=== PATIENT | female | born 1985 | race Caucasian/White ===

== ENCOUNTER 2017-06-07 00:41 | Emergency (ER) | payer MEDICAID ==
[2017-06-07] MEDS ORDERED: ONDANSETRON 4 MG/2 ML VIAL IVP ONE (01:34)
--- NOTE | 2017-06-07 01:45 | EDPHY ---
H & P Smoking Status: Never smoked Time Seen by Provider: 06/07/17 01:28 HPI/ROS: CHIEF COMPLAINT: Pleuritic chest pain HISTORY OF PRESENT ILLNESS: 32-year-old female presents to the emergency department by private vehicle complaining of right-sided chest and upper arm pain. The patient has a history of previous TIAs versus possible CVAs. She has antiphospholipid antibody syndrome. She was on Lovenox for nearly 1 year after she had her son and then stop this medication about 1 year ago. Tonight she developed abrupt onset of pain in her right upper chest and right anterior shoulder. She thinks it feels swollen. She is having pain with taking a big deep breath in feels mildly short of breath. No fevers or chills. No trauma. No abdominal pain or vomiting. REVIEW OF SYSTEMS: Constitutional: No fever, no chills. Eyes: No double or blurry vision. ENT: No sore throat. Respiratory: As above. No cough. Cardiac: Right anterior chest pain as above. Gastrointestinal: No abdominal pain, vomiting or diarrhea. Genitourinary: No dysuria. Musculoskeletal: No neck or back pain. Skin: No rashes. Neurological: No headache. (AreliCaroline philippe) Past Medical/Surgical History: TIA, CVA, antiphospholipid antibody, DVT groin requiring filter. (AreliCaroline philippe) Social History: Single (Dori Mcmahonartie Macias) Physical Exam: General Appearance: Alert, no distress. 97% on room air, heart rate 68, 131/66 Eyes: Pupils equal and round. Extraocular motions are all intact. ENT: Mouth: Mucous membranes moist. Respiratory: No wheezing, rhonchi, or rales, lungs are clear to auscultation. Pain with palpation to the right anterior superior aspect of her chest into her right anterior shoulder. Cardiovascular: Regular rate and rhythm. Gastrointestinal: Abdomen is soft and nontender, no masses, no rebound or guarding, bowel sounds normal. Neurological: Alert and oriented x 3, cranial nerves II through XII grossly intact Skin: Warm and dry, no rashes. Musculoskeletal: Nontender to palpate along the cervical, thoracic or lumbar spine. Neck is supple. Extremities: Full range of motion and no peripheral edema. Psychiatric: Patient is oriented X 3, there is no agitation. (Caroline Mcmahon) Constitutional: Initial Vital Signs Temperature (C) 36.8 C 06/07/17 00:45 Heart Rate 68 06/07/17 00:45 Respiratory Rate 18 06/07/17 00:45 Blood Pressure 131/66 H 06/07/17 00:45 O2 Sat (%) 97 06/07/17 00:45 O2 Delivery Mode Room Air Allergies/Adverse Reactions: Penicillins Allergy (Verified 06/07/17 00:44) peanuts Allergy (Uncoded 06/07/17 00:44) Home Medications: Medication Instructions Recorded Herbals/Supplements -Info Only 1 ea PO DAILY 02/19/14 Aspirin EC [Aspirin EC 81 mg (*)] 81 mg PO DAILY #30 tab 08/06/14 Enoxaparin [Lovenox 100 MG (*)] 100 mg SC DAILY #30 syr 08/06/14 Medical Decision Making ED Course/Re-evaluation: 32-year-old female with a history of DVT, TIA and CVA presents with pleuritic right upper chest pain and right anterior neck and shoulder pain. I explained to the patient that I was concerned about possible pulmonary embolism. An IV will be established and the patient will have CT pulmonary angiogram. Her mother gave her a baby aspirin prior to arrival. (Caroline Mcmahon) [id number]: CT angiogram of the chest shows no evidence of pulmonary embolism. I did go and see and evaluate the patient she is right comfortably at this time she has no arm pain neck pain or chest pain or shortness of breath she is feeling comfortable. Agreeable discharge. She does understand return immediately murmur she develops worsening pain questions or concerns. No evidence of PE on CT angiogram today. (Dick Ricardo) Differential Diagnosis: Shortness of breath including but not limited to pulmonary infectious process, COPD, asthma, pulmonary embolus and congestive heart failure. (Caroline Mcmahon) Care Turn Over: Care will be turned over to Dr. Ricardo for disposition and plan. (Caroline Mcmahon) - Data Points Laboratory Results: Laboratory Results 06/07/17 01:50 06/07/17 01:50 06/07/17 06/07/17 06/07/17 01:50 01:50 01:50 WBC 7.33 10^3/uL 10^3/uL (3.80-9.50) RBC 3.95 10^6/uL L 10^6/uL (4.18-5.33) Hgb 13.2 g/dL g/dL (12.6-16.3) Hct 39.0 % % (38.0-47.0) MCV 98.7 fL fL (81.5-99.8) MCH 33.4 pg pg (27.9-34.1) MCHC 33.8 g/dL g/dL (32.4-36.7) RDW 11.9 % % (11.5-15.2) Plt Count 150 10^3/uL 10^3/uL (150-400) MPV 9.1 fL fL (8.7-11.7) Neut % (Auto) 64.0 % % (39.3-74.2) Lymph % (Auto) 26.3 % % (15.0-45.0) [place] % (Auto) 8.5 % % (4.5-13.0) Eos % (Auto) 0.7 % % (0.6-7.6) Baso % (Auto) 0.4 % % (0.3-1.7) Nucleat RBC Rel Count 0.0 % % (0.0-0.2) Absolute Neuts (auto) 4.69 10^3/uL 10^3/uL (1.70-6.50) Absolute Lymphs (auto) 1.93 10^3/uL 10^3/uL (1.00-3.00) Absolute Monos (auto) 0.62 10^3/uL 10^3/uL (0.30-0.80) Absolute Eos (auto) 0.05 10^3/uL 10^3/uL (0.03-0.40) Absolute Basos (auto) 0.03 10^3/uL 10^3/uL (0.02-0.10) Absolute Nucleated RBC 0.00 10^3/uL 10^3/uL (0-0.01) Immature Gran % 0.1 % % (0.0-1.1) Immature Gran # 0.01 10^3/uL 10^3/uL (0.00-0.10) Sodium 139 mEq/L mEq/L (134-144) Potassium 3.7 mEq/L mEq/L (3.5-5.2) Chloride 103 mEq/L mEq/L (97-110) Carbon Dioxide 22 mEq/l mEq/l (22-31) Anion Gap 14 mEq/L mEq/L (8-16) BUN 18 mg/dL mg/dL (7-23) Creatinine 0.8 mg/dL mg/dL (0.6-1.0) Estimated GFR > 60 Glucose 100 mg/dL mg/dL (70-100) Calcium 9.0 mg/dL mg/dL (8.5-10.4) Beta HCG, Qual NEGATIVE Medications Given: Discontinued Medications Sodium Chloride (Ns) 1,000 mls @ 0 mls/hr IV ONCE ONE PRN Reason: Wide Open Stop: 06/07/17 02:08 Last Admin: 06/07/17 02:07 Dose: 1,000 mls Departure - Departure Disposition: Home, Routine, Self-Care Clinical Impression: Arm pain Qualifiers: Laterality: right Qualified Code(s): M79.601 - Pain in right arm Condition: Good Instructions: Arm Pain (ED) Additional Instructions: 1. Return emergency room if develops worsening pain questions or concerns. Referrals: NONE *PRIMARY CARE P,. [Primary Care Provider] - As per Instructions
[2017-06-07 02:04] LABS: % IMMATURE GRANULYOCYTES 0.1 % (0.0-1.1); ABSOLUTE IMMATURE GRANULOCYTES 0.01 10^3/uL (0.00-0.10); ADD DIFF? NO; ADD MORPH? NO; ADD SCAN? NO; ATYPICAL LYMPHOCYTE FLAG 10 (0-99); FRAGMENT RBC FLAG 0 (0-99); HEMOGLOBIN 13.2 g/dL (12.6-16.3); LEFT SHIFT FLG 0 (0-99); LIPEMIA HEMOLYSIS FLAG 90 (0-99); MEAN CELL HEMOGLOBIN 33.4 pg (27.9-34.1); MEAN CELL HEMOGLOBIN CONCENTR. 33.8 g/dL (32.4-36.7); MEAN CELL VOLUME 98.7 fL (81.5-99.8); MEAN PLATELET VOLUME 9.1 fL (8.7-11.7); PLATELET CLUMPS FLAG 0 (0-99); PLATELET COUNT 150 10^3/uL (150-400); RED BLOOD CELL COUNT 3.95 10^6/uL (4.18-5.33); RED CELL DISTRIBUTION WIDTH 11.9 % (11.5-15.2)
[2017-06-07] MEDS ORDERED: NS 1,000 ML IV ONE (02:07)
[2017-06-07 02:16] LABS: ANION GAP 14 mEq/L (8-16); CARBON DIOXIDE 22 mEq/l (22-31); CHLORIDE 103 mEq/L (97-110); CREATININE 0.8 mg/dL (0.6-1.0); GLOMERULAR FILTRATION RATE > 60; GLUCOSE 100 mg/dL (70-100); POTASSIUM 3.7 mEq/L (3.5-5.2); SODIUM 139 mEq/L (134-144)
[2017-06-07] MEDS ORDERED: IOPAMIDOL (ISOVUE 370) 100 ML BTL IV ONE (02:33)
[2017-06-07 04:04] VITALS: BP 105/79; PULSE 70; RESP 16; TEMP 97.9; O2SAT 96
== END 2017-06-07 04:04 | disposition home or self-care (01) ==
PROC: 3E0337Z Introduction of Electrolytic and Water Balance Substance into Peripheral Vein, Percutaneous Approach (ICD-10-PCS; principal; 2017-06-07)
DX: M79.601 Pain in right arm (principal); Z86.73 Personal history of transient ischemic attack (TIA), and cerebral infarction without residual deficits; Z91.010 Allergy to peanuts; Z79.82 Long term (current) use of aspirin
CPT/HCPCS: Q9967